=== PATIENT | male | born 1970 | race Caucasian/White ===

== ENCOUNTER → 2016-11-20 | Outpatient (CLI) | payer OTHER ==
[~2016-11-20] MED LIST: ASPI81TA28 PO; IBUP-103 PO
[2016-11-20 12:53] LABS: BASO % 0.4 %; BASO ABS # 0.04 K/uL (0-0.2); COMPLETE YES; EOS % 4.9 %; IG% 0.5 %; LYMPH % 30.9 %; LYMPH ABS # 3.33 K/uL (1.2-3.4); MEAN CELL VOLUME 88.7 fL (80-100); MEAN CORPUSCULAR HEMOGLOBIN 30.4 pg (25-34); MEAN CORPUSCULAR HGB CONC 34.3 g/dl (32-36); MEAN PLATELET VOLUME 11.1 fL (7.4-10.4); MONO % 6.9 %; NEUT % 56.4 %; PLATELET COUNT 240 K/uL (130-400); WHITE BLOOD COUNT 10.77 K/uL (4.8-10.8)
[2016-11-20 13:23] LABS: ALT/SGPT 48 U/L (12-78); BLOOD UREA NITROGEN 17 mg/dl (7-18); CALCIUM 8.9 mg/dl (8.5-10.1); CARBON DIOXIDE 25 mmol/L (21-32); CHLORIDE 105 mmol/L (98-107); CHOLESTEROL 182 mg/dl (0-200); GLUCOSE 101 mg/dl (70-99); POTASSIUM 3.9 mmol/L (3.5-5.1); SODIUM 140 mmol/L (136-145); TRIGLYCERIDES 316 mg/dl (0-150); VERY LOW DENSITY LIPOPROT CALC 63 mg/dl
[2016-11-20 13:27] LABS: ALB/GLOB RATIO 1.3 (0.9-2); ALKALINE PHOSPHATASE 60 U/L (45-117); AST/SGOT 25 U/L (15-37); CHOLESTEROL/HDL RATIO 5.4; HDL CHOLESTEROL 34 mg/dl; LDL CHOLESTEROL CALCULATED 85 mg/dl
== END | disposition home or self-care (01) ==
LOC: C.LAB1850 10:52
PROVIDERS: ATTEND Nurse Practitioner Family
DX: Z13.220 Encounter for screening for lipoid disorders (principal); Z13.1 Encounter for screening for diabetes mellitus

== ENCOUNTER → 2017-06-28 | Outpatient (CLI) | payer OTHER ==
[2017-06-28 12:26] LABS: HEMOGLOBIN A1C 6.2 % (4.5-5.6)
[2017-06-28 13:15] LABS: ALBUMIN 4.1 gm/dl (3.4-5.0); ALT/SGPT 42 U/L (12-78); AST/SGOT 20 U/L (15-37); BLOOD UREA NITROGEN 19 mg/dl (7-18); CALCIUM 8.7 mg/dl (8.5-10.1); CARBON DIOXIDE 25 mmol/L (21-32); CREATININE 1.19 mg/dl (0.60-1.40); GLUCOSE 100 mg/dl (70-99); POTASSIUM 3.7 mmol/L (3.5-5.1); SODIUM 138 mmol/L (136-145)
[2017-06-28 13:25] LABS: ALKALINE PHOSPHATASE 65 U/L (45-117); CHOLESTEROL 186 mg/dl (0-200); LDL CHOLESTEROL CALCULATED 94 mg/dl; TOTAL PROTEIN 7.7 gm/dl (6.4-8.2)
== END | disposition home or self-care (01) ==
LOC: C.LAB1850 10:25
PROVIDERS: ATTEND Nurse Practitioner Family
DX: E78.1 Pure hyperglyceridemia (principal); R73.9 Hyperglycemia, unspecified; R68.89 Other general symptoms and signs

== ENCOUNTER → 2017-10-15 | Outpatient (CLI) | payer OTHER ==
[~2017-10-15] MED LIST changes: -ASPI81TA28 PO; +CLC100 PO; +FLUO10CA48 PO; +GADAVIST IV PRN; +GLC/500 PO; -IBUP-103 PO; +NICO21DI4 TD; +OXYC-57 PO; +ZNT150 PO
--- NOTE | 2017-10-15 17:55 | DIAGNOSTIC IMAGING REPORT ---
MRI OF THE ABDOMEN WITH AND WITHOUT CONTRAST ADRENAL PROTOCOL CLINICAL HISTORY: Adrenal hemorrhage. Evaluate for adrenal lesion. COMPARISON STUDY: CT of the abdomen and pelvis August 30, 2017. TECHNIQUE: Utilizing a 1.5 Janie magnet and dedicated coil, multiplanar, multiecho imaging of the abdomen was performed pre and postcontrast administration. Post contrast imaging was performed utilizing dynamic enhancement. Intravenous injection of 9 cc of Gadavist IV was uneventful. FINDINGS: This exam is moderately compromised by motion artifact. Note is made of a 4.2 x 1.9 x 1.8 cm T1 hyperintense abnormality within the expected region of the right adrenal gland which corresponds to the hematoma shown on CT of August 30, 2017. This has moderately decreased in size. There is no definite enhancement although evaluation is difficult given motion artifact. A normal-appearing adrenal gland is not identified and is likely contained within this resolving hematoma. The left adrenal gland is normal. A few renal cysts are noted. Mild splenomegaly is noted. There is no abdominal lymphadenopathy or ascites. No hepatic lesions are identified. Major vasculature of the abdomen is patent. IMPRESSION: 4.2 x 1.9 x 1.8 cm right suprarenal T1 hyperintense focus which corresponds to the finding on CT of August 30, 2017. Moderate decrease in size. This favors a resolving right adrenal hematoma. Normal right adrenal gland not identified and likely contained within this resolving hematoma. No definite enhancement although an underlying lesion would be difficult to exclude given motion artifact. An adrenal protocol CT in 3 months is recommended. Electronically signed by: Tristan Ivy M.D. 10/15/2017 5:53 PM Dictated Date/Time: 10/15/2017 4:43 PM
== END | disposition home or self-care (01) ==
LOC: C.MRI 15:19
PROVIDERS: ATTEND Nurse Practitioner Family
DX: E27.49 Other adrenocortical insufficiency (principal)